=== PATIENT | male | born 1940 | race Caucasian/White ===

== ENCOUNTER 2019-01-10 15:54 | Inpatient (IN) | payer MEDICARE, OTHER ==
[2019-01-10] MEDS ORDERED: ACETAMINOPHEN 325 MG TAB PO (16:00)
[2019-01-10] MEDS ORDERED: ONDANSETRON 4 MG INJ IV (16:00)
[2019-01-10 16:29] LABS: ADD MAN DIFF? NO
[2019-01-10 16:37] LABS: BASOPHIL # 0.1 10^3/ul (0.0-0.1); BASOPHILS % 0.4 % (0.0-2.0); EOSINOPHILS % 0.1 % (0.0-7.0); HEMATOCRIT 50.1 % (42.0-52.0); HEMOGLOBIN 16.7 g/dl (14.0-18.0); LYMPHOCYTES # 1.2 10^3/ul (0.8-2.9); LYMPHOCYTES % 8.1 % (15.0-51.0); MEAN CORPUSCULAR HEMOGLOBIN 32.2 pg (29.0-33.0); MEAN CORPUSCULAR HGB CONC 33.3 g/dl (32.0-37.0); MEAN CORPUSCULAR VOLUME 96.5 fl (82.0-101.0); MEAN PLATELET VOLUME 8.8 fl (7.4-10.4); MONOCYTES % 6.6 % (0.0-11.0); NEUTROPHIL # 12.5 10^3/ul (1.6-7.5); NEUTROPHILS % 84.4 % (39.0-77.0); PLATELET COUNT 217 10^3/UL (140-415); RED BLOOD COUNT 5.19 10^6/ul (4.70-6.10); RED CELL DISTRIBUTION WIDTH 14.1 % (11.5-14.5)
[2019-01-10 16:37] LABS: WHITE BLOOD COUNT 14.8 10^3/ul (4.8-10.8)
[2019-01-10] MEDS: NITROGLYCERIN (SL) 0.4 MG TAB SL (16:51)
[2019-01-10] MEDS: NITROGLYCERIN 2% 1 GM OINT PKT TD ×2 (16:51→22:54)
[2019-01-10] MEDS: ASPIRIN 81 MG TAB PO (16:51)
[2019-01-10 16:55] LABS: ANION GAP 8 (5-13); BLOOD UREA NITROGEN 17 mg/dl (7-20); CALCIUM 10.3 mg/dl (8.4-10.2); CARBON DIOXIDE 26 mmol/L (21-31); CHLORIDE 101 mmol/L (97-110); CREATININE 1.19 mg/dl (0.61-1.24); GLUCOSE 99 mg/dl (70-220); POTASSIUM 3.8 mmol/L (3.5-5.1); SODIUM 135 mmol/L (135-144)
[2019-01-10 17:07] LABS: TROPONIN-I < 0.012 ng/ml (0.000-0.120)
[2019-01-10] MEDS ORDERED: NITROGLYCERIN (SL) 0.4 MG TAB SL (18:30)
[2019-01-10] MEDS ORDERED: NACL 0.9% 3 ML SYG IV (18:30)
[2019-01-10] MEDS ORDERED: HYDROCODONE/APAP (5/325) TAB PO (18:30)
[2019-01-10] MEDS: HYDROCODONE/APAP (10/325) TAB PO (18:59)
[2019-01-10] MEDS ORDERED: ZOLPIDEM 5 MG TAB PO (19:00)
[2019-01-10] MEDS: [UNRECOGNIZED DRUG - REMARK] XX (19:30)
[2019-01-10] MEDS ORDERED: LOPERAMIDE 2 MG CAP PO (20:30)
[2019-01-10 22:40] LABS: CREATINE KINASE 61 IU/L (23-200)
[2019-01-10 22:49] LABS: CK INDEX 2.3; CK-MB 1.41 ng/ml (0.0-2.4)
[2019-01-10 22:53] LABS: TROPONIN-I < 0.012 ng/ml (0.000-0.120)
[2019-01-11] MEDS: ZOLPIDEM 5 MG TAB PO ×2 (00:49→23:50)
[2019-01-11] MEDS: [UNRECOGNIZED DRUG - REMARK] XX ×3 (03:30→19:30)
[2019-01-11 05:35] LABS: HEMOGLOBIN A1C 5.2 % (0-5.9)
[2019-01-11 05:54] LABS: CREATINE KINASE 54 IU/L (23-200)
[2019-01-11 06:05] LABS: CK INDEX 2.9; CK-MB 1.56 ng/ml (0.0-2.4); TROPONIN-I < 0.012 ng/ml (0.000-0.120)
[2019-01-11] MEDS: NITROGLYCERIN 2% 1 GM OINT PKT TD ×3 (06:30→20:26)
[2019-01-11] MEDS: FINASTERIDE 5 MG TAB PO (08:21)
[2019-01-11] MEDS: FAMOTIDINE 20 MG TAB PO (08:21)
[2019-01-11] MEDS: ASPIRIN 81 MG TAB PO (08:21)
[2019-01-11 08:44] LABS: PHOSPHORUS 4.1 mg/dl (2.5-4.9)
[2019-01-11] MEDS ORDERED: ARMODAFINIL 150 MG PO (09:00)
[2019-01-11] MEDS ORDERED: ASPIRIN 81 MG TAB PO (09:00)
[2019-01-11] MEDS: METOPROLOL (XL) 25 MG TAB PO (09:37)
[2019-01-11] MEDS: CEPASTAT LOZENGE MT (12:52)
[2019-01-11] MEDS: AZELASTINE 30 ML NAS SPRAY NASAL (12:52)
[2019-01-11 13:12] LABS: ALANINE AMINOTRANSFERASE 25 IU/L (13-69); ALBUMIN 3.5 g/dl (3.3-4.9); ALKALINE PHOSPHATASE 55 IU/L (42-121); ASPARTATE AMINO TRANSFERASE 22 IU/L (15-46); BILIRUBIN,INDIRECT 0.7 mg/dl (0-1.1); BILIRUBIN,TOTAL 0.7 mg/dl (0.2-1.3); TOTAL PROTEIN 5.5 g/dl (6.1-8.1)
[2019-01-11 13:21] LABS: LIPASE 101 U/L (23-300)
[2019-01-11] MEDS: HYDROCODONE/APAP (10/325) TAB PO (20:25)
[2019-01-12] MEDS: [UNRECOGNIZED DRUG - REMARK] XX ×3 (03:21→18:27)
[2019-01-12] MEDS: NITROGLYCERIN 2% 1 GM OINT PKT TD ×2 (05:06→13:10)
[2019-01-12 07:24] LABS: ALANINE AMINOTRANSFERASE 26 IU/L (13-69); ALBUMIN 3.6 g/dl (3.3-4.9); ALBUMIN/GLOBULIN RATIO 1.44; ALKALINE PHOSPHATASE 57 IU/L (42-121); ANION GAP 7 (5-13); ASPARTATE AMINO TRANSFERASE 26 IU/L (15-46); BILIRUBIN,INDIRECT 0.9 mg/dl (0-1.1); BILIRUBIN,TOTAL 0.9 mg/dl (0.2-1.3); BLOOD UREA NITROGEN 19 mg/dl (7-20); CARBON DIOXIDE 25 mmol/L (21-31); CHLORIDE 104 mmol/L (97-110); CREATININE 1.07 mg/dl (0.61-1.24); GLUCOSE 85 mg/dl (70-220); POTASSIUM 3.8 mmol/L (3.5-5.1); SODIUM 136 mmol/L (135-144); TOTAL PROTEIN 6.1 g/dl (6.1-8.1)
[2019-01-12] MEDS: REGADENOSON 0.4 MG/5 ML SYG (09:09)
[2019-01-12] MEDS: HYDROCODONE/APAP (10/325) TAB PO ×2 (09:39→17:40)
[2019-01-12] MEDS: METOPROLOL (XL) 25 MG TAB PO (09:44)
[2019-01-12] MEDS: ASPIRIN 81 MG TAB PO (09:44)
[2019-01-12] MEDS: FINASTERIDE 5 MG TAB PO (09:44)
[2019-01-12] MEDS: FAMOTIDINE 20 MG TAB PO (09:48)
[2019-01-12 09:58] LABS: ADD UMIC YES; UR ASCORBIC ACID NEGATIVE (NEGATIVE); UR BACTERIA FEW /HPF (NONE SEEN); UR BILIRUBIN (Dip) NEGATIVE (NEGATIVE); UR BLOOD (Dip) 1+ mg/dL (NEGATIVE); UR CLARITY CLEAR (CLEAR); UR COLOR YELLOW (YELLOW); UR GLUCOSE (Dip) NEGATIVE (NEGATIVE); UR KETONES (Dip) NEGATIVE (NEGATIVE); UR LEUKOCYTE ESTERASE (Dip) NEGATIVE Leu/ul (NEGATIVE); UR NITRITE (Dip) NEGATIVE (NEGATIVE); UR RBC 1 /HPF (0-5); UR SPECIFIC GRAVITY (Dip) 1.013 (1.003-1.030); UR TOTAL PROTEIN (Dip) NEGATIVE (NEGATIVE); UR UROBILINOGEN (Dip) NEGATIVE (NEGATIVE); UR WBC 1 /HPF (0-5)
[2019-01-12] MEDS: PANTOPRAZOLE (EC) 40 MG TAB PO ×2 (12:54→13:35)
[2019-01-13] MEDS: ZOLPIDEM 5 MG TAB PO (00:19)
[2019-01-13] MEDS: [UNRECOGNIZED DRUG - REMARK] XX ×3 (03:30→19:30)
[2019-01-13] MEDS: FINASTERIDE 5 MG TAB PO (09:25)
[2019-01-13] MEDS: NITROGLYCERIN 0.1 MG/HR PATCH TRANSDERM (09:25)
[2019-01-13] MEDS: ASPIRIN 81 MG TAB PO (09:25)
[2019-01-13] MEDS: FAMOTIDINE 20 MG TAB PO (09:26)
[2019-01-13] MEDS: METOPROLOL (XL) 25 MG TAB PO (09:26)
[2019-01-13] MEDS: HYDROCODONE/APAP (5/325) TAB PO ×2 (16:06→22:46)
[2019-01-14] MEDS: ZOLPIDEM 5 MG TAB PO ×2 (00:46→23:38)
[2019-01-14] MEDS: [UNRECOGNIZED DRUG - REMARK] XX ×2 (03:30→11:30)
[2019-01-14 05:49] LABS: ADD MAN DIFF? NO
[2019-01-14 06:02] LABS: BASOPHIL # 0.1 10^3/ul (0.0-0.1); BASOPHILS % 0.6 % (0.0-2.0); EOSINOPHILS # 0.1 10^3/ul (0.0-0.5); EOSINOPHILS % 1.1 % (0.0-7.0); HEMATOCRIT 45.3 % (42.0-52.0); HEMOGLOBIN 15.1 g/dl (14.0-18.0); LYMPHOCYTES # 1.5 10^3/ul (0.8-2.9); MEAN CORPUSCULAR HEMOGLOBIN 32.6 pg (29.0-33.0); MEAN CORPUSCULAR HGB CONC 33.3 g/dl (32.0-37.0); MEAN CORPUSCULAR VOLUME 97.8 fl (82.0-101.0); MEAN PLATELET VOLUME 9.3 fl (7.4-10.4); MONOCYTE # 0.9 10^3/ul (0.3-0.9); NEUTROPHILS % 76.8 % (39.0-77.0); PLATELET COUNT 187 10^3/UL (140-415); RED BLOOD COUNT 4.63 10^6/ul (4.70-6.10); RED CELL DISTRIBUTION WIDTH 14.2 % (11.5-14.5)
[2019-01-14 06:02] LABS: WHITE BLOOD COUNT 11.7 10^3/ul (4.8-10.8)
[2019-01-14 06:30] LABS: ANION GAP 8 (5-13); BLOOD UREA NITROGEN 20 mg/dl (7-20); CALCIUM 8.8 mg/dl (8.4-10.2); CARBON DIOXIDE 23 mmol/L (21-31); CHLORIDE 106 mmol/L (97-110); CREATININE 1.05 mg/dl (0.61-1.24); GLUCOSE 94 mg/dl (70-220); SODIUM 137 mmol/L (135-144)
[2019-01-14 06:33] LABS: PHOSPHORUS 3.7 mg/dl (2.5-4.9)
[2019-01-14] MEDS: PANTOPRAZOLE (EC) 40 MG TAB PO (07:09)
[2019-01-14] MEDS: FINASTERIDE 5 MG TAB PO (08:40)
[2019-01-14] MEDS: ASPIRIN 81 MG TAB PO (08:41)
[2019-01-14] MEDS: FAMOTIDINE 20 MG TAB PO (08:41)
[2019-01-14] MEDS: METOPROLOL (XL) 25 MG TAB PO (08:42)
[2019-01-14] MEDS: ALPRAZOLAM 0.25 MG TAB NGT (08:46)
[2019-01-14] MEDS: NITROGLYCERIN 0.1 MG/HR PATCH TRANSDERM (10:18)
[2019-01-14] MEDS: HYDROCODONE/APAP (5/325) TAB PO ×2 (14:10→22:32)
[2019-01-15] MEDS: PANTOPRAZOLE (EC) 40 MG TAB PO (05:52)
[2019-01-15] MEDS ORDERED: LIDOCAINE 1% (MDV) 20 ML INJ (06:58)
[2019-01-15] MEDS ORDERED: IODIXANOL LOCM 100 ML BTL (06:58)
[2019-01-15] MEDS ORDERED: MIDAZOLAM 1 MG/ML 2 ML INJ ×2 (07:23→08:08)
[2019-01-15] MEDS ORDERED: FENTAnyl 50 MCG/ML VIAL ×2 (07:23→08:14)
[2019-01-15] MEDS ORDERED: HEPARIN 1000 UNITS/ML 10 ML INJ (07:55)
[2019-01-15] MEDS ORDERED: NITROGLYCERIN (IC) 100 MCG/ML INJ (08:18)
[2019-01-15] MEDS: SOD CHLORIDE 0.45% 1,000 ML IV (08:48)
[2019-01-15] MEDS: ARMODAFINIL 150 MG PO (09:00)
[2019-01-15] MEDS: ASPIRIN 81 MG TAB PO (09:00)
[2019-01-15] MEDS: NITROGLYCERIN 0.1 MG/HR PATCH TRANSDERM (09:00)
[2019-01-15] MEDS: FINASTERIDE 5 MG TAB PO (09:00)
[2019-01-15] MEDS: METOPROLOL (XL) 25 MG TAB PO (09:00)
[2019-01-15] MEDS: FAMOTIDINE 20 MG TAB PO (09:00)
[2019-01-15] MEDS: HYDROCODONE/APAP (5/325) TAB PO (10:21)
[2019-01-15] MEDS: ACETAMINOPHEN 325 MG TAB PO (15:07)
== END 2019-01-15 19:07 | disposition home or self-care (01) | DRG 287 ==
LOC: E/R 15:54 → TEL 16:00
PROVIDERS: Internal Medicine
PROC: 4A023N7 Measurement of Cardiac Sampling and Pressure, Left Heart, Percutaneous Approach (ICD-10-PCS; principal; 2019-01-15 07:17)
PROC: B213YZZ Fluoroscopy of Multiple Coronary Artery Bypass Grafts using Other Contrast (ICD-10-PCS; 2019-01-15 07:17)
PROC: B218YZZ Fluoroscopy of Left Internal Mammary Bypass Graft using Other Contrast (ICD-10-PCS; 2019-01-15 07:17)
PROC: B211YZZ Fluoroscopy of Multiple Coronary Arteries using Other Contrast (ICD-10-PCS; 2019-01-15 07:17)
PROC: B215YZZ Fluoroscopy of Left Heart using Other Contrast (ICD-10-PCS; 2019-01-15 07:17)
DX: R07.89 Other chest pain (principal); I25.10 Atherosclerotic heart disease of native coronary artery without angina pectoris; G62.9 Polyneuropathy, unspecified; I73.9 Peripheral vascular disease, unspecified; I10 Essential (primary) hypertension; G47.419 Narcolepsy without cataplexy; E78.5 Hyperlipidemia, unspecified; K21.9 Gastro-esophageal reflux disease without esophagitis; I25.2 Old myocardial infarction; M79.7 Fibromyalgia; Z95.5 Presence of coronary angioplasty implant and graft; Z87.891 Personal history of nicotine dependence; Z95.1 Presence of aortocoronary bypass graft; M81.0 Age-related osteoporosis without current pathological fracture; Z79.82 Long term (current) use of aspirin; Z82.49 Family history of ischemic heart disease and other diseases of the circulatory system
CPT/HCPCS: 36415; 71045; 78452; 80048; 80053; 80076; 81001; 82550; 82553; 83036; 83690; 83735; 84100; 84484; 85025; 93005; 93017; 93306; 93459; 99285-25; G0378